=== PATIENT | female | born 1935 | race Caucasian/White ===

== ENCOUNTER 2017-09-10 08:31 | Day surgery (SDC) | payer MEDICARE, MEDICAID ==
[~2017-09-10] VITALS: Ht 129.9 cm; Wt 43.5 kg
[~2017-09-10 08:31] MED LIST: ASPI-1159 PO; GLIP5TAB12 PO; LOSA100T14 PO; METF500T4 PO
[2017-09-10] MEDS ORDERED: LACTATED RINGERS 1,000 ML IV SCH (09:30)
[2017-09-10] MEDS ORDERED: LIDOCAINE HCL/PF 1% 10 MG/ML 5ML VIAL ONE (10:38)
[2017-09-10] MEDS ORDERED: PROPOFOL 200MG/20ML VIAL IV ONE (10:38)
[2017-09-10] MEDS ORDERED: CEFAZOLIN SODIUM 1000MG/VIAL ONE (10:46)
[2017-09-10] MEDS ORDERED: HYDROMORPHONE HCL/PF 2MG/ML CPJ IV PRN (11:00)
[2017-09-10] MEDS ORDERED: MEPERIDINE HCL/PF 25MG/ML CPJ IV PRN (11:00)
[2017-09-10] MEDS ORDERED: LABETALOL 5MG/ML SYR 20 MG/4 ML SYRINGE IV PRN (11:00)
[2017-09-10] MEDS ORDERED: ONDANSETRON HCL 4MG/2ML VIAL IV PRN (11:00)
[2017-09-10] MEDS ORDERED: MEGE400O28 PO (11:42)
[2017-09-10] MEDS ORDERED: ALBU2.5V13 IH (11:42)
[2017-09-10] MEDS ORDERED: LEVE500T19 PO (11:42)
== END 2017-09-10 13:25 | disposition home or self-care (01) ==
LOC: OR 08:31
PROVIDERS: ATTEND Internal Medicine Gastroenterology
DX: K22.2 Esophageal obstruction (principal); E46 Unspecified protein-calorie malnutrition; E11.9 Type 2 diabetes mellitus without complications; I10 Essential (primary) hypertension; I25.10 Atherosclerotic heart disease of native coronary artery without angina pectoris; R41.82 Altered mental status, unspecified; K29.70 Gastritis, unspecified, without bleeding; K44.9 Diaphragmatic hernia without obstruction or gangrene; N63.0 Unspecified lump in unspecified breast; I69.351 Hemiplegia and hemiparesis following cerebral infarction affecting right dominant side; K21.9 Gastro-esophageal reflux disease without esophagitis; M19.90 Unspecified osteoarthritis, unspecified site; E78.4 Other hyperlipidemia; C78.00 Secondary malignant neoplasm of unspecified lung; Z79.84 Long term (current) use of oral hypoglycemic drugs; Z79.82 Long term (current) use of aspirin; Z79.899 Other long term (current) drug therapy
CPT/HCPCS: 43246; 43249; 82962; J0690; J3490; J7120; J2704